=== PATIENT | female | born 1955 | race Caucasian/White ===

== ENCOUNTER 2017-07-09 09:28 | Emergency (ER) | payer MEDICARE, OTHER ==
[~2017-07-09 09:28] MED LIST: *UNABLE3; ALAVERT10 MG PO; AMB10 PO; AMB5 PO; B12100T PO; CLARIT10 PO; DEPAKOTEER PO; FLINTSTONE3 PO; FOLIC ACID OTC PO; FOLIC ACID PO; KEPPRA500 PO; VITAMIN B12 PO; ZOFRAN ODT4 MG PO
== END 2017-07-09 11:21 | disposition home or self-care (01) ==
LOC: ER 09:28
DX: M79.672 Pain in left foot (principal); Z88.0 Allergy status to penicillin; Z88.1 Allergy status to other antibiotic agents; Z88.8 Allergy status to other drugs, medicaments and biological substances
CPT/HCPCS: 73610-LT; 73630-LT; 99283